=== PATIENT | female | born 1965 | race Caucasian/White ===

== ENCOUNTER 2017-04-06 20:18 | Emergency (ER) | payer BC ==
[2017-04-06 20:25] VITALS: BP 158/74; PULSE 78; TEMP 98.2; BMI 34.5
--- NOTE | 2017-04-06 20:28 | PDOC ---
History of Present Illness - History of Present Illness Initial Comments: Patient is a 51 year old female who is presenting to the ED with left flank pain since yesterday. The patient states that she developed her pain yesterday while driving home from work and since then it has persisted. Her pain radiates to the front of her LUQ and she notes that it disrupted her sleep last night. The patient also endorses frequent belching and an episode of nausea and vomiting before coming to the ED. Denies hematuria, dysuria, heavy lifting, recent trauma, back injury, or any history of kidney stones. Denies family hx of nephrolithiasis. PAST MEDICAL HISTORY: bronchial asthma PAST SURGICAL HISTORY: cholecystectomy FAMILY HISTORY: no pertinent history SOCIAL HISTORY: Pt lives with family and is employed. MEDICATIONS: reviewed ALLERGIES: As per nursing notes General: No fevers or chills, no weakness, no weight loss HEENT: No change in vision. No sore throat,. No ear pain CardioVascular: No chest pain or shortness of breath Respiratory:No cough, or wheezing. Gastrointestinal: Nausea, vomiting, frequent belching. No diarrhea or constipation, No rectal bleeding Genitourinary: No dysuria, hematuria, or frequency Musculoskeletal: Left flank pain. No joint or muscle swelling Neurologic: No headache, vertigo, dizziness or loss of consciousness Psychiatric: nor depression Skin: No rashes or easy bruising Endocrine: no increased thirst or abnormal weight change Allergic: no skin or latex allergy All other systems reviewed and normal General: Well-nourished well-developed individual, no acute distress HEENT: Throat: Normal, tonsils normal, no erythema or exudate Neck: Supple, no meningeal signs, no lymphadenopathy Eyes::Pupils equal reactive and round, extraocular motion intact Chest: Nontender to palpation Cardiac: S1-S2 normal, regular rate and rhythm, no murmurs rubs or gallops Respiratory: Lungs clear to auscultation bilateral Abdomen: Soft, nondistended, normal bowel sounds, mild tenderness to LUQ Musculoskeletal: Tenderness on palpation to left CVA and left flank. Extremities: Warm, dry, no cyanosis, clubbing, or edema Skin: No rashes Neuro: Alert and oriented x3, nonfocal exam, grossly intact, normal gait Psych: Normal mood and affect <Dulce Aleman - Last Filed: 04/06/17 21:48> - General History Source: Patient Exam Limitations: No Limitations - History of Present Illness Initial Comments: 04/06/17 22:54 A portion of this note was documented by scribe services under my direction. I have reviewed the details of the note, within reason, and agree with the documentation. The case summary and management plan written by me. Assessment and plan: This is a 51-year-old female who comes in complaining of left upper flank pain. Patient was given Toradol and morphine with improvement of her symptoms and resolution of the pain. Patient had a workup that did show a mildly elevated white count at 12.7 but no left shift Patient is afebrile and able to tolerate by mouth's here in the emergency room Patient CAT scan showed no evidence of kidney stones There was a few diverticula but no acute diverticulitis There was a small cyst on the left ovary of 2.5 cm Otherwise CAT scan was unremarkable. Patient given copy of her sac and report as well as her labs and told she should follow-up with her primary care doctor on Monday of next week if not improved. Patient discharged home. <Cathryn Cuenca I - Last Filed: 04/06/17 22:57> - General Chief Complaint: Pain Stated Complaint: LEFT SIDED BACK PAIN Time Seen by Provider: 04/06/17 20:23 Past History <Dulce Aleman - Last Filed: 04/06/17 21:48> - Past Medical History Asthma: Yes (BRONCHIAL ASTHMA) - Surgical History Cholecystectomy: Yes - Psycho/Social/Smoking Cessation Hx Anxiety: No Suicidal Ideation: No Smoking History: Current some day smoker Have you smoked in the past 12 months: Yes Number of Cigarettes Smoked Daily: 1 Information on smoking cessation initiated: Yes 'Breaking Loose' booklet given: 04/06/17 Hx Alcohol Use: (occasional) Drug/Substance Use Hx: No Substance Use Type: None <Cathryn Cuenca I - Last Filed: 04/06/17 22:57> - Past Medical History Allergies/Adverse Reactions: Allergies Allergy/AdvReac Type Severity Reaction Status Date / Time No Known Allergies Allergy Verified 04/06/17 20:20 Home Medications: Ambulatory Orders No Known Home Medication 04/06/17 *Physical Exam - Vital Signs Last Vital Signs Temp Pulse Resp BP Pulse Ox 98.2 F 78 18 158/74 100 04/06/17 20:18 04/06/17 20:18 04/06/17 20:18 04/06/17 20:18 04/06/17 20:18 <Dulce Aleman - Last Filed: 04/06/17 21:48> - Vital Signs Last Vital Signs Temp Pulse Resp BP Pulse Ox 98.2 F 78 18 158/74 100 04/06/17 20:18 04/06/17 20:18 04/06/17 20:18 04/06/17 20:18 04/06/17 20:18 <Cathryn Cuenca I - Last Filed: 04/06/17 22:57> Heart Score/ECG Review #1 04/06/17 21:48 Normal sinus rhythm at 65 bpm Normal ECG <Dulce Aleman - Last Filed: 04/06/17 21:48> ED Treatment Course - LABORATORY CBC & Chemistry Diagram: 04/06/17 21:00 04/06/17 21:00 <Dulce Aleman - Last Filed: 04/06/17 21:48> - LABORATORY CBC & Chemistry Diagram: 04/06/17 21:00 04/06/17 21:00 <Cathryn Cuenca I - Last Filed: 04/06/17 22:57> *DC/Admit/Observation/Transfer - Attestations Scribe Attestion: 04/06/17 20:40 Documentation prepared by Dulce Aleman, acting as medical technical writer for Cathryn Cuenca MD. <Dulce Aleman - Last Filed: 04/06/17 21:48> - Discharge Dispostion Admit: No <Cathryn Cuenca I - Last Filed: 04/06/17 22:57> Diagnosis at time of Disposition: Acute left flank pain - Discharge Dispostion Disposition: HOME Condition at time of disposition: Stable - Referrals Referrals: Nicky Fernandez MD [Primary Care Provider] - - Patient Instructions Additional Instructions: For the pain take ibuprofen or Naprosyn. Follow-up with your primary care DrRamesh on Monday if he still experiencing any pain. Return to the emergency department immediately with ANY new, persistent or worsening symptoms. Continue any medications as previously prescribed by your physician. You should follow up with your primary doctor as soon as possible regarding today's emergency department visit. . Please make sure your doctor reviews the results of your emergency evaluation. Thank you for coming to the Emergency Department today for your care. It was a pleasure to see you today. Please note that your evaluation is INCOMPLETE until you follow-up with your doctor.
[2017-04-06] MEDS ORDERED: KETOROLAC TROMETHAMINE 30 MG/1 ML VIAL IVPUSH ONE (20:33)
[2017-04-06] MEDS ORDERED: morphine CARPU-JECT 2 MG/1 ML DISP.SYRIN IVPUSH ONE (20:33)
[2017-04-06] MEDS ORDERED: ONDANSETRON 4 MG/2 ML VIAL IVPB ONE (20:33)
[2017-04-06] MEDS ORDERED: SODIUM CHLORIDE 1,000 ML IV ONE (20:33)
[2017-04-06] MEDS ORDERED: morphine CARPU-JECT 2 MG/1 ML DISP.SYRIN ONE (20:44)
[2017-04-06] MEDS ORDERED: KETOROLAC TROMETHAMINE 30 MG/1 ML VIAL ONE (20:44)
[2017-04-06] MEDS ORDERED: ONDANSETRON 4 MG/2 ML VIAL ONE (20:44)
[2017-04-06 21:16] LABS: PH,URINE 5.5 (4.5-8); URINE APPEARANCE Clear; URINE BILIRUBIN Negative (NEGATIVE); URINE BLOOD Negative (NEGATIVE); URINE COLOR YELLOW; URINE GLUCOSE (UA) Negative (NEGATIVE); URINE KETONE Negative (NEGATIVE); URINE LEUK ESTERASE Negative (NEGATIVE); URINE NITRITE Negative (NEGATIVE); URINE PROTEIN Negative (NEGATIVE); URINE UROBILINOGEN 0.2 E.U/dl (0.2-1.0)
[2017-04-06 21:21] LABS: BASOPHIL 1.4 % (0-2.0); EOSINOPHIL 1.4 % (0-4.5); MCH 23.7 pg (25.7-33.7); MCHC 32.6 g/dl (32.0-36.0); MEAN CELL VOLUME 72.6 fl (80-96); MEAN PLT VOLUME 8.1 fl (7.5-11.1); NEUTROPHILS 71.9 % (42.8-82.8); PLATELET COUNT 317 K/MM3 (134-434); RDW 17.2 % (11.6-15.6); WHITE BLOOD COUNT 12.4 K/mm3 (4.0-10.8)
[2017-04-06 21:44] LABS: ALBUMIN 3.7 g/dl (3.5-5.0); ALK PHOS 50 U/L (32-92); ANION GAP 7 (8-16); CALCIUM 9.2 mg/dl (8.4-10.2); CO2 27 mmol/L (22-28); CREATININE 0.6 mg/dl (0.6-1.3); GLUCOSE,RANDOM 105 mg/dl (74-106); SGOT/AST 14 U/L (10-42); SGPT/ALT 12 U/L (10-40); TOT PROT 6.8 g/dl (6.4-8.3)
[2017-04-06 22:09] LABS: BILIRUBIN,TOTAL < 0.3 mg/dl (0.2-1.0)
[2017-04-06 22:47] LABS: ANISOCYTOSIS 1+; HYPOCHROMIA 1+; MICROCYTOSIS 1+; OVALOCYTES 1+; TEAR DROP CELLS 1+
--- NOTE | 2017-04-07 16:54 | EKG ---
Test Reason : Blood Pressure : / mmHG Vent. Rate : 065 BPM Atrial Rate : 065 BPM P-R Int : 160 ms QRS Dur : 092 ms QT Int : 422 ms P-R-T Axes : 024 065 041 degrees QTc Int : 438 ms NORMAL SINUS RHYTHM NORMAL ECG WHEN COMPARED WITH ECG OF 29-NOV-2015 08:58, NO SIGNIFICANT CHANGE WAS FOUND Confirmed by NICOLAS IRVING MD ([id number]) on 04/07/2017 4:54:27 PM Referred By: DR ARREGUIN Confirmed By:NICOLAS IRVING MD
== END 2017-04-06 23:14 | disposition home or self-care (01) ==
LOC: FER 20:18
PROC: 3E033NZ Introduction of Analgesics, Hypnotics, Sedatives into Peripheral Vein, Percutaneous Approach (ICD-10-PCS; principal; 2017-04-06)
PROC: 3E0333Z Introduction of Anti-inflammatory into Peripheral Vein, Percutaneous Approach (ICD-10-PCS; 2017-04-06)
PROC: 3E033GC Introduction of Other Therapeutic Substance into Peripheral Vein, Percutaneous Approach (ICD-10-PCS; 2017-04-06)
PROC: 3E0337Z Introduction of Electrolytic and Water Balance Substance into Peripheral Vein, Percutaneous Approach (ICD-10-PCS; 2017-04-06)
DX: R10.32 Left lower quadrant pain (principal); F17.210 Nicotine dependence, cigarettes, uncomplicated; J45.998 Other asthma
CPT/HCPCS: 36415; 74176-TC; 80053; 81003; 83690; 84703; 85025; 93005; 99284-25

== ENCOUNTER 2017-10-10 05:50 | Day surgery (SDC) | payer BC ==
--- NOTE | 2017-10-09 09:24 | HP ---
[facility] - Chief Complaint Chief Complaint: left knee pain - Past Medical History Allergies/Adverse Reactions: Allergies Allergy/AdvReac Type Severity Reaction Status Date / Time No Known Allergies Allergy Verified 04/06/17 20:20 ...LMP: 03/01/15 - Current Medications Current Medications: Home Medications Medication Instructions Recorded NK [No Known Home Medication] 10/03/17 [facility] Physical Exam - Physical Examination General Appearance: Well Nourished, Well Developed, Alert & Oriented x3 ENT: Clear Lung: Normal air movement Heart: Regular rate & rhythm Extremities: Other (left knee- + swelling, + ttp medially, decr rom, nvi xrays show grade 4 medial djd) Neurological: Intact, Alert, Oriented [facility] Impression/Plan - Impression/Plan Impression: left knee medial djd Operative Procedure: left medial francois ukr Date to be Performed: 10/10/17
[2017-10-10] MEDS ORDERED: TRANEXAMIC ACID 1000 MG/10 ML VIAL IVPUSH ONE (06:40)
[2017-10-10] MEDS ORDERED: CELECOXIB 200 MG CAPSULE PO ONE (06:40)
[2017-10-10] MEDS ORDERED: CEFAZOLIN 2 GM in DEXTROSE 5%-WATER - 50 ML IVPB ONE (06:40)
[2017-10-10] MEDS ORDERED: GABAPENTIN 300 MG CAPSULE (FP) PO ONE (06:40)
[2017-10-10] MEDS ORDERED: oxyCODONE HCL 10 MG SUSTAINED ACTING TABLET PO ONE (06:40)
[2017-10-10] MEDS ORDERED: ROPIVICAINE 0.2%/MORPH PF/KETOROLAC - 51ML DISP.SYRINGE IA ONE ×2 (06:40→09:24)
[2017-10-10 06:58] VITALS: BMI 34.5
[2017-10-10] MEDS ORDERED: DEXAMETHASONE SOD PHOSPHATE/PF 10 MG/ML SDV ONE (07:01)
[2017-10-10] MEDS ORDERED: ROPIVACAINE HCL 0.5% 30ML VIAL ONE (07:01)
[2017-10-10] MEDS ORDERED: SODIUM CHLORIDE 0.9% P/F 10 ML VIAL IJ ONE (07:01)
[2017-10-10] MEDS ORDERED: MIDAZOLAM HCL 2 MG/2 ML SINGLE DOSE VIAL ONE ×2 (07:01→08:08)
[2017-10-10] MEDS ORDERED: THROMBIN (BOVINE) 5,000 UNIT VIAL TP ONE ×2 (07:16→09:01)
[2017-10-10] MEDS ORDERED: GELATIN, ABSORBABLE 100 EACH SPONGE TP ONE ×2 (07:16→09:01)
[2017-10-10] MEDS ORDERED: ceFAZolin SODIUM 1 GM VIAL ONE ×2 (07:31→07:42)
[2017-10-10] MEDS ORDERED: PROPOFOL 20 ML ONE (07:38)
[2017-10-10] MEDS ORDERED: SUCCINYLCHOLINE CHLORIDE 200 MG/10 ML VIAL ONE (07:38)
[2017-10-10] MEDS ORDERED: oxyCODONE HCL 5 MG TABLET PO PRN (09:14)
[2017-10-10] MEDS ORDERED: ONDANSETRON 4 MG/2 ML VIAL IVPUSH PRN ×2 (09:14→09:50)
[2017-10-10] MEDS ORDERED: LACTATED RINGERS SOLUTION 1,000 ML IV SCH ×2 (09:15→10:00)
[2017-10-10] MEDS ORDERED: MAG HYDROX/AL HYDROX/SIMETH 30 ML UNIT-DOSE CUP PO PRN (09:50)
--- NOTE | 2017-10-10 09:52 | OP ---
Operative Note - Note: Operative Date: 10/10/17 ([place]) Pre-Operative Diagnosis: left knee medial djd Operation: left medial francois ukr Post-Operative Diagnosis: Same as Pre-op Surgeon: Papito Cardona Metal Sprayer: Jefry Sewell) Anesthesiologist/[employer] PILOT: Severino Corado Anesthesia: Spinal, Local Specimens Removed: bone fragments Estimated Blood Loss (mls): 50 Operative Report Dictated: Yes
--- NOTE | 2017-10-10 10:58 | SPEC ---
DATE OF OPERATION: 10/10/2017 PREOPERATIVE DIAGNOSIS: Degenerative joint disease, left knee. POSTOPERATIVE DIAGNOSIS: Degenerative joint disease, left knee. PROCEDURE: Left medial unicompartmental knee replacement with robotic-assisted navigation (MAKOplasty). SURGICAL ATTENDING: Eduard Cardona MD QA CONSULTANT: EVONNE Bowman and Jefry Sewell MD ANESTHESIA: Spinal and regional. CLOSURE: Medial RITESH components with a 4 femur, 4 tibia, and an 8 polyethylene; No. 1 Vicryl, fascia; 0 and 2-0, subcutaneous; 3-0 Monocryl subcuticular with skin glue for skin; 4-0 undyed Vicryl for pin sites. ESTIMATED BLOOD LOSS: Negligible. COMPLICATIONS: None. CONDITION: To recovery in stable condition. DESCRIPTION OF OPERATIVE PROCEDURE: Patient was taken to the operating room on October 10, 2017. Spinal and regional anesthesia was administered by the anesthesiologist. IV Kefzol and TXA were administered prophylactically prior to the case. A well-padded pneumatic tourniquet was placed on the left proximal thigh. The left lower extremity was prepped and draped in the usual sterile fashion. A 6- to 8-cm longitudinal incision over the medial side of the patella from mid patella to the tibial tubercle was incised and was deepened using Bovie cautery. An arthrotomy was then made just medial to the patellar tendon and the patella. Subperiosteal dissection was done on the anteromedial proximal tibia all the way back to the MCL. Partial fat pad excision was performed, exposing the medial compartment. Checkpoint was malleable at both the femur and the tibia. Using 2 stab incisions in the femur 1 handbreadth above the patella on the femur and 2 stab incisions 1 handbreadth below the tibial tubercle on the tibia, 2 threaded pins were drilled in parallel fashion from anterior to posterior, going through the proximal cortex and engaging the 2nd but not through the 2nd cortex. To these threaded pins were fastened navigation rays, 1 on the femur and 1 on the tibia. The knee was then registered with the navigation device with the center of the rotation of the hip, medial and lateral malleoli, and multiple points both on the femur and on the tibia. Excellent registration of less than 0.5 mm was obtained on both to ensure adequate registration. The navigation device ensured us to "pop the bubbles" both on the femur and the tibia and that was performed and passed registration. The knee was then thoroughly inspected to remove all osteophytes both on the femur and the tibia. Also, osteophytes on the trochlea and on the surface of the patella were removed as well. The knee was then stressed with valgus stress at 0, 30, 60, 90, and 120 degrees of flexion. This propagated a looseness/tightness graft. The virtual positions of the components were then optimized to ensure an excellent graft. The tracking also was optimized by manipulating the virtual position to ensure that the femoral component articulated with the central portion of the tibial component. The robot was then brought into the field and was registered. The robot was used to bur the bone on both the femur and the tibia as to the specifications of the components. The trial components were then applied on both the femur and the tibia with an appropriate polyethylene insert. The knee was taken through a range of motion and found to have full extension, full flexion, with excellent stability. Stressing the graft revealed an excellent looseness/tightness graft with the trial components in place. The trial components were removed. The knee was thoroughly irrigated with a copious amount of antibiotic irrigation. The real components were then cemented in using modern generation cement techniques with antibiotic cement and pressurization. After the cement was hardened, the knee was thoroughly inspected to remove out all excess cement. The real polyethylene insert was then clipped into place. Range of motion and stability were again assessed to be as they were with the trials. At this time, the pins and the checkpoints were removed. The knee was again thoroughly irrigated. The arthrotomy was closed with No. 1 Vicryl, 0 and 2-0 subcutaneous, and 3-0 Monocryl subcuticular with skin glue for the skin, 4-0 undyed Vicryl for the pin sites. Sterile pressure dressing was placed over the knee. Patient awakened from anesthesia and transferred to recovery in stable condition. No complications. Estimated blood loss negligible. X-rays postoperatively revealed excellent position of the components. Jefry Sewell MD dictating for MD EDUARD Forbes M.D. [id number]
[2017-10-10] MEDS: SENNOSIDES/DOCUSATE COMBO (SENNA PLUS) TABLET (UD) PO SCH ×2 (13:30→21:36)
[2017-10-10] MEDS: MULTIVITAMINS (DAILY MVI) TABLET (FP) PO SCH (13:32)
[2017-10-10] MEDS: PANTOPRAZOLE 40 MG TABLET (FP) PO SCH (13:32)
[2017-10-10] MEDS: ACETAMINOPHEN 325 MG TABLET (FP) PO SCH ×3 (13:39→23:45)
[2017-10-10] MEDS: CEFAZOLIN 2 GM/D5W 2 GM/50 ML ML IVPB SCH ×2 (15:53→23:44)
[2017-10-10] MEDS: GABAPENTIN 300 MG CAPSULE (FP) PO SCH (21:36)
[2017-10-10] MEDS: oxyCODONE HCL 5 MG TABLET PO PRN (21:36)
[2017-10-10] MEDS: oxyCODONE HCL 10 MG SUSTAINED ACTING TABLET PO SCH (21:36)
[2017-10-11] MEDS: oxyCODONE HCL 5 MG TABLET PO PRN ×2 (06:21→12:38)
[2017-10-11] MEDS: ACETAMINOPHEN 325 MG TABLET (FP) PO SCH ×2 (06:21→12:39)
[2017-10-11] MEDS ORDERED: ASPIRIN 325 MG TABLET PO SCH (08:00)
[2017-10-11 09:10] VITALS: BP 151/60; PULSE 56; TEMP 97.4
--- NOTE | 2017-10-11 09:28 | PN ---
Progress Note (short form) - Note Progress Note: Ortho Pt seen and examined s/p left medial francois ukr pod #1 Selected Entries 10/11/17 09:04 Temperature 97.4 F L Pulse Rate 56 L Respiratory 16 Rate Blood Pressure 151/60 dressing c/d/i, calf soft, nt rom 0-120, nvi a/p PT dvt ppx pain control d/c home today f/u in 1 week
--- NOTE | 2017-10-11 09:29 | DS ---
Physical Examination Vital Signs: Vital Signs Temperature 97.4 F L 10/11/17 09:04 Pulse Rate 56 L 10/11/17 09:04 Respiratory Rate 16 10/11/17 09:04 Blood Pressure 151/60 10/11/17 09:04 O2 Sat by Pulse Oximetry (%) 97 10/10/17 22:53 Discharge Summary Reason For Visit: OSTEOARTHRITIS Procedures: Principal: s/p left medial francois ukr Hospital Course: admitted for elective left medial francois, uneventful post-op, stable for d/c Condition: Good - Instructions Diet, Activity, Other Instructions: Post-op Instructions-Partial Knee Replacement Call the office for a follow-up appointment in 1 week - [phone] Aspirin 325mg daily for 6 weeks. Pain medication was sent into your pharmacy. Apply Graduated Compression Stockings (TEDs) to both lower extremities- remove daily for hygiene ONLY Apply Sequential Compression Device (SCDs) to both Lower extremities remove for PT and hygiene ONLY Apply cold packs to affected area for 15 minutes every 2 hours. Physical Therapist will come to your home for the first 5 days. You will be set up with outpatient PT at your first post-operative visit. Patient may ambulate as tolerated-encourage self care (at least every 2-3 hours while awake) with walker or cane Maintain Aquacel (waterproof) dressing to operative wound (will be removed by surgeon at first office visit) Shower with Aquacel dressing in place-if Aquacel integrity compromised, remove and apply dry sterile dressing and notify Orthopedist. DO NOT SHOWER unless Orthopedists approves without Aquacel dressing CONTACT THE OFFICE FOR ANY CHANGE IN YOUR CONDITION (for example-fever greater than 102 degrees, excessive bleeding from operative site, purulent drainage, severe swelling or pain) GO TO THE EMERGENCY ROOM IF THERE IS A MEDICAL EMERGENCY Knee Precautions: * Keep a rolled towel under affected heel while in bed or chair (to keep knee in extension) * Keep affected leg elevated except during mealtimes * DO NOT PLACE PILLOW UNDER AFFECTED KNEE * If you have any questions, please do not hesitate to call the office - . Referrals: Jefry Sewell MD [Staff Physician] - Disposition: VNS/HOME HEALTH CARE - Home Medications Comprehensive Discharge Medication List: Ambulatory Orders Oxycodone HCl/Acetaminophen [Percocet 5-325 mg Tablet] 1 - 2 tab PO Q6H #50 tab MDD 8 10/10/17
[2017-10-11] MEDS: SENNOSIDES/DOCUSATE COMBO (SENNA PLUS) TABLET (UD) PO SCH (10:23)
[2017-10-11] MEDS: oxyCODONE HCL 10 MG SUSTAINED ACTING TABLET PO SCH (10:24)
[2017-10-11] MEDS: GABAPENTIN 300 MG CAPSULE (FP) PO SCH (10:24)
[2017-10-11] MEDS: MULTIVITAMINS (DAILY MVI) TABLET (FP) PO SCH (10:25)
[2017-10-11] MEDS: PANTOPRAZOLE 40 MG TABLET (FP) PO SCH (10:25)
--- NOTE | 2017-10-11 11:02 | PN ---
Progress Note (short form) - Note Progress Note: Post op day#1.S/p Left knee Macoplasty under spinal anesthesia with L adductor canal block uneventful.Patient stable and c/o pain score of 2-3/10.Patient is on medication for pain.No any anesthesia related problem.Patient dc from the anesthesia care.
== END 2017-10-11 13:05 | disposition home or self-care (01) ==
LOC: FASU 05:50 → FM/S 06:40 → FASU 10-11 13:05
PROVIDERS: ATTEND Orthopaedic Surgery
PROC: 8E0YXBZ Computer Assisted Procedure of Lower Extremity (ICD-10-PCS; 2017-10-10)
PROC: 0SRC0L9 Replacement of Right Knee Joint with Medial Unicondylar Synthetic Substitute, Cemented, Open Approach (ICD-10-PCS; principal; 2017-10-10 08:00)
DX: M17.12 Unilateral primary osteoarthritis, left knee (principal)
CPT/HCPCS: 20985; 27437; 27446; S2900; 73560-TC-LT; 84703; 94010; 97116-GP; 97162-GP

== ENCOUNTER 2017-10-16 10:47 | Emergency (ER) | payer BC ==
[2017-10-16 11:00] VITALS: BP 110/71; TEMP 98.1; BMI 34.7
[2017-10-16 11:05] VITALS: PULSE 98
--- NOTE | 2017-10-16 11:22 | PDOC ---
History of Present Illness - General Chief Complaint: Wound Stated Complaint: left knee drainage Time Seen by Provider: 10/16/17 10:52 History Source: Patient Exam Limitations: No Limitations - History of Present Illness Initial Comments: 10/16/17 11:15 52y F no signficiant pmhs presents with complaint of discharge from L knee. The patient had knee surgery [address] Sewell, and has been donig her rehab and doing well - mild pain since surgery but improves w/ percocet - last night, she woke up around 4am with discharge on her knee. pt denies any fever/chills, no increase in leg pain, no redness/streaking. pts next follow up appointment is or mon. pt denies any other symptoms including sob, cp, palpitations, f/c. Past History - Past Medical History Allergies/Adverse Reactions: Allergies Allergy/AdvReac Type Severity Reaction Status Date / Time No Known Allergies Allergy Verified 10/16/17 10:48 Home Medications: Ambulatory Orders Oxycodone HCl/Acetaminophen [Percocet 5-325 mg Tablet] 1 - 2 tab PO Q6H #50 tab MDD 8 10/10/17 Anemia: No Asthma: Yes (BRONCHIAL ASTHMA) Cancer: No Cardiac Disorders: No CVA: No COPD: No CHF: No DVT: No Dementia: No Diabetes: No GI Disorders: No Disorders: No HTN: No Hypercholesterolemia: No Liver Disease: No Seizures: No Thyroid Disease: No - Surgical History Abdominal Surgery: No Appendectomy: No Cardiac Surgery: No Cholecystectomy: Yes Lung Surgery: No Neurologic Surgery: No Orthopedic Surgery: No - Suicide/Smoking/Psychosocial Hx Smoking History: Current some day smoker Have you smoked in the past 12 months: Yes Number of Cigarettes Smoked Daily: 1 Information on smoking cessation initiated: Yes 'Breaking Loose' booklet given: 10/16/17 Hx Alcohol Use: No Drug/Substance Use Hx: No Substance Use Type: None Hx Substance Use Treatment: No Review of Systems - Review of Systems Able to Perform ROS?: Yes Comments:: 10/16/17 11:17 Constitutional - no reported Fever, Chills, Respiratory: no reported cough, sob, hemoptysis Cardiac: ++leg swelling no reported chest pain, palpitations, Abd/GI: no reported abd pain, nausea, vomiting, Musculskelatal - +wound discharge no reported back pain, joint swelling skin - +wound w/ serosangounous discharge no reported bruising, erythema, rash neurological: no reported headache, numbness, focal weakness, tingling, ataxia, hematologic: no reported anemia, easy bruising, easy bleeding *Physical Exam - Vital Signs Last Vital Signs Temp Pulse Resp BP Pulse Ox 98.1 F 98 H 17 110/71 98 10/16/17 10:48 10/16/17 10:48 10/16/17 10:48 10/16/17 10:48 10/16/17 10:48 - Physical Exam Comments: 10/16/17 11:18 GENERAL: The patient is awake, alert, and fully oriented, Nontoxic - in no acute distress. EXTREMITIES: mild edema of LLE, 3 incisions on anterior L leg, over knee there is a dressing with bloody dischage, was removed, no signficant discharge, but small amounts of serousangouns discharge, not foul smelling, no signs of induration, erythema, fluctuance, ttp appreciated. mild edema, No calf tenderness, neg homans sign. Medical Decision Making - Medical Decision Making 10/16/17 11:22 no infection appreciated. case d/w dr. sewell requests to see the pt in his office will redress the wound return precautions were discussed I discussed the physical exam findings, ancillary test results and final diagnoses with the patient. I answered all of the patient's questions. The patient was satisfied with the care received and felt comfortable with the discharge plan and treatment plan. The patient will call their primary care physician within 24 hours to arrange follow-up and will return to the Emergency Department with any new, persistent or worsening symptoms. *DC/Admit/Observation/Transfer Diagnosis at time of Disposition: Wound drainage - Discharge Dispostion Disposition: HOME Condition at time of disposition: Stable Admit: No - Referrals Referrals: Jefry Sewell MD [Staff Physician] - - Patient Instructions Printed Discharge Instructions: How to Care for a Surgical Wound-Stitches Additional Instructions: Please go to Dr. Zuniga office now, he is expecting you. Print Language: SWEDISH - Post Discharge Activity
== END 2017-10-16 11:31 | disposition home or self-care (01) ==
LOC: FER 10:47
DX: T81.89XA Other complications of procedures, not elsewhere classified, initial encounter (principal); J45.909 Unspecified asthma, uncomplicated; F17.210 Nicotine dependence, cigarettes, uncomplicated
CPT/HCPCS: 99281-25

== ENCOUNTER 2018-02-01 | Emergency (ER) | payer BC ==
--- NOTE | 2018-02-01 00:09 | PDOC ---
History of Present Illness - General Chief Complaint: Pain, Acute Stated Complaint: LUQ PAIN/VOMITING Time Seen by Provider: 02/01/18 00:03 - History of Present Illness Initial Comments: This 52-year-old woman with a history of asthma,s/p cholecystectomy presents with 1 day history of left upper quadrant abdominal discomfort, followed by nausea and vomiting since 2 PM today. Prior to this, patient had intermittent loose stools for 2 days (no blood/mucus in stools). No history of fever or chills. No known history of sick contacts. No recent travel. Patient states that sensation of fullness or "bloating" in the left upper quadrant began last evening. This afternoon, nausea began and she had a few episodes of bilious vomiting. She then presented to urgent care; after returning home she had further episodes of vomiting and persistent left upper quadrant pain. She has had passage of small amount of soft stool today; no further loose stools today. Patient is currently passing small amounts of gas per rectum. Patient smokes 1-2 cigarettes daily; no alcohol/recreational drug use Past History - Past Medical History Allergies/Adverse Reactions: Allergies Allergy/AdvReac Type Severity Reaction Status Date / Time No Known Allergies Allergy Verified 02/01/18 00:02 Home Medications: Ambulatory Orders Hyoscyamine Odt [Levsin Odt -] 0.125 mg PO QID PRN #10 tab.rapdis 02/01/18 Ondansetron [Zofran Odt -] 4 mg SL BID PRN #12 od.tablet 02/01/18 Anemia: No Asthma: Yes (BRONCHIAL ASTHMA) Cancer: No Cardiac Disorders: No CVA: No COPD: No CHF: No DVT: No Dementia: No Diabetes: No GI Disorders: No Disorders: No HTN: No Hypercholesterolemia: No Liver Disease: No Seizures: No Thyroid Disease: No - Surgical History Abdominal Surgery: No Appendectomy: No Cardiac Surgery: No Cholecystectomy: Yes Lung Surgery: No Neurologic Surgery: No Orthopedic Surgery: No - Suicide/Smoking/Psychosocial Hx Smoking History: Current some day smoker Have you smoked in the past 12 months: Yes Number of Cigarettes Smoked Daily: 1 'Breaking Loose' booklet given: 10/16/17 Hx Alcohol Use: No Drug/Substance Use Hx: No Substance Use Type: None Hx Substance Use Treatment: No Review of Systems - Review of Systems Able to Perform ROS?: Yes Comments:: 12 point review of systems is negative except for what is noted in the history of present illness *Physical Exam - Physical Exam Comments: GENERAL: Adult female, alert and oriented 3, in moderate distress secondary to nausea/abdominal pain HEAD: Normal with no signs of trauma. EYES: PERRLA, EOMI, sclera anicteric, conjunctiva clear. ENT: Ears normal, nares patent, oropharynx clear without exudates. Dry mucous membranes. NECK: Normal range of motion, supple without lymphadenopathy, JVD, or masses. LUNGS: Breath sounds equal, clear to auscultation bilaterally. No wheezes, and no crackles. HEART:Regular rate and rhythm, normal S1 and S2 without murmur, rub or gallop. ABDOMEN: Hypoactive bowel sounds. Mild left upper quadrant tenderness without rebound/guarding; no masses palpated; no organomegaly EXTREMITIES: Normal range of motion, no edema. No clubbing or cyanosis. No erythema, or tenderness. NEUROLOGICAL: Cranial nerves II through XII grossly intact. Normal speech. No focal neurological deficits. MUSCULOSKELETAL: Back non-tender to palpation, mild left CVA tenderness SKIN: Warm, Dry, normal turgor, no rashes or lesions noted. ED Treatment Course - LABORATORY CBC & Chemistry Diagram: 02/01/18 00:20 02/01/18 00:11 Progress Note - Progress Note Progress Note: Laboratory evaluation of CBC/chemistry profile/lipase was essentially normal. Mildly decreased MCV of 77 is comparable to previous values on laboratory evaluation here. White blood cell count and platelet count are normal. Other than evidence of mild to moderate prerenal azotemia (BUN 13/creatinine 0.6 ; specific gravity of urine 0.025) , lab values are essentially normal. Because of her mild left upper quadrant tenderness/left upper quadrant and epigastric discomfort, abdominal/pelvic CT was performed to evaluate for acute intra-abdominal processes such as acute diverticulitis/small bowel obstruction/ pancreatitis. CT was interpreted by Imaging construction recruiter: No evidence of acute intra-abdominal/ intrapelvic processes The patient was given IV hydration (2 L normal saline total) as well as antiemetic medications IV (4 mg Zofran IV followed by an additional 4 mg dose; she eventually required Reglan 10 mg IV). Levsin ODT 0.125 mg was administered for her crampy abdominal discomfort. Patient reported marked relief in nausea and abdominal discomfort. She still had some burping but tolerated small amounts of water by mouth without nausea/vomiting. Clinical presentation most consistent with acute gastroenteritis Patient will be discharged with prescriptions for Zofran ODT 4 mg to be used as needed for nausea; she will also have a small prescription for Levsin 0.125 mg as needed for abdominal discomfort. She has been instructed to maintain a clear liquid diet and advance diet cautiously. She should return to the emergency room if she experiences increased abdominal pain/vomiting/fever. Patient has been given documentation not to work later on today, 02/01. Patient and her are scheduled to leave on a vacation on Monday, 02/02. Patient has been advised to consider delaying departure for the trip for an additional day or 2 of recuperation. *DC/Admit/Observation/Transfer Diagnosis at time of Disposition: Gastroenteritis - Discharge Dispostion Disposition: HOME Condition at time of disposition: Stable - Prescriptions Prescriptions: Hyoscyamine Odt [Levsin Odt -] 0.125 mg PO QID PRN #10 tab.rapdis PRN Reason: Pain Ondansetron [Zofran Odt -] 4 mg SL BID PRN #12 od.tablet PRN Reason: Nausea - Referrals Referrals: Nicky Fernandez MD [Primary Care Provider] - - Patient Instructions Printed Discharge Instructions: DI for Viral Gastroenteritis -- Adult Additional Instructions: Rest; clear liquid diet No work today Advance diet cautiously Zofran ODT 4 mg as needed for nausea Levsin ODT 0.125 mg up to 4 times a day as needed for abdominal discomfort Return to ER immediately if you have persistent vomiting/increasing pain/fever Follow-up with your doctor when you return from vacation - Post Discharge Activity Forms/Work/School Notes: Back to Work
[2018-02-01] MEDS ORDERED: ONDANSETRON 4 MG/2 ML VIAL IVPUSH ONE ×2 (00:12→01:27)
[2018-02-01] MEDS ORDERED: SODIUM CHLORIDE 1,000 ML IV STA (00:12)
[2018-02-01] MEDS ORDERED: KETOROLAC TROMETHAMINE 30 MG/1 ML VIAL IVPUSH ONE (00:12)
[2018-02-01 00:17] VITALS: BP 148/72; PULSE 83; TEMP 97.9; BMI 34.7
[2018-02-01] MEDS ORDERED: ONDANSETRON 4 MG/2 ML VIAL ONE ×2 (00:18→01:25)
[2018-02-01] MEDS ORDERED: KETOROLAC TROMETHAMINE 30 MG/1 ML VIAL ONE ×2 (00:18→03:02)
[2018-02-01 00:48] LABS: BASO % 0.6 % (0-2.0); EOS % 0.4 % (0-4.5); HEMATOCRIT 34.4 % (32.4-45.2); HEMOGLOBIN 11.3 GM/dL (10.7-15.3); LYMPH % 12.3 % (8-40); MCH 25.4 pg (25.7-33.7); MCHC 32.8 g/dl (32.0-36.0); MEAN CELL VOLUME 77.2 fl (80-96); MEAN PLT VOLUME 8.1 fl (7.5-11.1); MONO % 4.9 % (3.8-10.2); NEUT % 81.8 % (42.8-82.8); PLATELET COUNT 376 K/MM3 (134-434); RBC 4.45 M/mm3 (3.60-5.2); RDW 14.5 % (11.6-15.6); WHITE BLOOD COUNT 9.6 K/mm3 (4.0-10.0)
[2018-02-01 00:49] LABS: URINE APPEARANCE CLEAR; URINE BILIRUBIN NEGATIVE (<2.0 mg/dL); URINE BLOOD NEGATIVE (NEGATIVE); URINE COLOR YELLOW; URINE GLUCOSE (UA) NEGATIVE (NEGATIVE); URINE KETONE TRACE (NEGATIVE); URINE LEUK ESTERASE NEGATIVE (NEGATIVE); URINE NITRITE NEGATIVE (NEGATIVE); URINE PROTEIN NEGATIVE (NEGATIVE); URINE UROBILINOGEN NEGATIVE mg/dL (0.2-1.0)
[2018-02-01 01:26] LABS: LIPASE 114 U/L (73-393)
[2018-02-01] MEDS ORDERED: HYOSCYAMINE SULFATE 0.125 MG *ODT PO ONE (01:29)
[2018-02-01 01:30] LABS: BLOOD UREA NITROGEN 12 mg/dl (7-18); CREATININE 0.6 mg/dl (0.6-1.3); GLUCOSE,RANDOM 116 mg/dl (74-106); POTASSIUM 3.7 mmol/L (3.5-5.1); SODIUM 141 mmol/L (136-145)
[2018-02-01] MEDS ORDERED: HYOSCYAMINE SULFATE 0.125 MG *ODT ONE ×2 (01:30→03:08)
[2018-02-01 01:31] LABS: ALBUMIN 3.7 g/dl (3.5-5.0); ANION GAP 14 (8-16); BILIRUBIN,TOTAL 0.5 mg/dl (0.2-1.0); CALCIUM 8.8 mg/dl (8.4-10.2); CHLORIDE 104 mmol/L (98-107); CO2 23 mmol/L (22-28); SGOT/AST 16 U/L (10-42); SGPT/ALT 16 U/L (10-40); TOT PROT 7.4 g/dl (6.4-8.3)
[2018-02-01 01:32] LABS: ALK PHOS 75 U/L (32-92)
[2018-02-01] MEDS ORDERED: METOCLOPRAMIDE HCL INJECTION 10 MG/2 ML VIAL IVPB ONE (02:04)
[2018-02-01] MEDS ORDERED: KETOROLAC TROMETHAMINE 15 MG/ML VIAL IVPUSH ONE (02:55)
[2018-02-01] MEDS ORDERED: ONDANSETRON *ODT* 4 MG TABLET ONE (03:09)
== END 2018-02-01 03:18 | disposition home or self-care (01) ==
LOC: FER
PROC: 3E033GC Introduction of Other Therapeutic Substance into Peripheral Vein, Percutaneous Approach (ICD-10-PCS; principal; 2018-02-01)
PROC: 3E0333Z Introduction of Anti-inflammatory into Peripheral Vein, Percutaneous Approach (ICD-10-PCS; 2018-02-01)
PROC: 3E0337Z Introduction of Electrolytic and Water Balance Substance into Peripheral Vein, Percutaneous Approach (ICD-10-PCS; 2018-02-01)
DX: K52.9 Noninfective gastroenteritis and colitis, unspecified (principal); J45.909 Unspecified asthma, uncomplicated; F17.210 Nicotine dependence, cigarettes, uncomplicated
CPT/HCPCS: 36415; 74177-TC; 80053; 81003; 83690; 85025; 99281-25; J7030

== ENCOUNTER 2018-09-24 19:24 | Emergency (ER) | payer BC ==
[2018-09-24 19:38] VITALS: BP 139/69; PULSE 96; TEMP 99; BMI 37.1
--- NOTE | 2018-09-24 19:43 | PDOC ---
History of Present Illness - History of Present Illness Initial Comments: 09/24/18 20:24 The patient is a 53 year old female, with no significant PMH who presents to the emergency department with shortness of breath, left shoulder pain, palpitations today. Patient states the shortness of breath is exacerbated with walking. is at bedside, and notes that the patient has been having difficulty falling asleep. The patient denies chest pain, headache and dizziness. Denies fever, chills, nausea, vomit, diarrhea and constipation. Denies dysuria, frequency, urgency and hematuria. Allergies: NKA Past surgical history: None reported. Social history: No reported alcool, de Adult ROS General: No fevers or chills, no weakness, no weight loss HEENT: No change in vision. No sore throat,. No ear pain CardioVascular: No chest pain. (+) Shortness of breath. (+)Palpitations. Respiratory:No cough, or wheezing. Gastrointestinal: no nausea, vomiting, diarrhea or constipation, No rectal bleeding Genitourinary: No dysuria, hematuria, or frequency Musculoskeletal: No muscle pain or swelling. (+) Left shoulder pain. Neurologic: No headache, vertigo, dizziness or loss of consciousness Psychiatric: nor depression Skin: No rashes or easy bruising Endocrine: no increased thirst or abnormal weight change Allergic: no skin or latex allergy All other systems reviewed and normal Adult Exam: General: Well-nourished well-developed individual, no acute distress (+) Obese. HEENT: Throat: Normal, tonsils normal, no erythema or exudate Neck: Supple, no meningeal signs, no lymphadenopathy Eyes::Pupils equal reactive and round, extraocular motion intact Chest: Nontender to palpation Cardiac: S1-S2 normal, regular rate and rhythm, no murmurs rubs or gallops Respiratory: Lungs clear to auscultation bilateral Abdomen: Soft, nondistended, normal bowel sounds, nontender to palpation diffusely Extremities: Warm, dry, no cyanosis, clubbing, or edema Skin: No rashes Neuro: Alert and oriented x3, nonfocal exam, grossly intact, normal gait Psych: Normal mood and affect <Rosa Ramesh - Last Filed: 09/24/18 21:02> - General History Source: Patient Exam Limitations: No Limitations - History of Present Illness Initial Comments: 09/24/18 20:03 A portion of this note was documented by scribe services under my direction. I have reviewed the details of the note, within reason, and agree with the documentation with the following case summary and management plan written by me. Patient treated in the ED. Nursing notes are reviewed and incorporated into the medical decision-making. Vital signs reviewed. Medical decision making: This is a 53 year old female who comes in complaining of multiple somatic complaints. Patient is complaining of chest discomfort, arm discomfort, palpitations, shortness of breath especially with exertion. Patient is also complaining of multiple myalgias and arthralgias. Patient's complaining of fatigue. Patient has not seen her primary care doctor. Patient said symptoms have been going on 1 week plus now. Patient denies history of hypertension, high cholesterol, diabetes or coronary artery disease. Patient denies history of smoking does have a history of obesity. Workup was initiated including CBC, comp, calcium, mag, phosphorus, BNP, d-dimer , urinalysis, chest x-ray, EKG, Lyme disease, CRP. EKG shows normal sinus rhythm at a rate of 86, normal intervals no acute ST-T wave changes, normal EKG 09/24/18 21:00 Reevaluation: Patient feels much better after the Toradol. Patient says she has no more palpitations or shortness of breath. Patient resting comfortably. D-dimer, BNP still pending. Chest x-ray shows no acute pathology 09/25/18 00:[address] angios of the chest that shows no pulmonary embolism pneumonia or pleural effusions no dissection or aneurysm. There is a left lower lobe nodule less than 4 mm probably inflammatory. In addition to that there is a 1.6 hypodense nodule in the lower pole of the right thyroid. Patient was given a copy of her CAT scan and the nodules were pointed out and she was instructed to take it to her primary care doctor follow up with her primary care doctor In addition to that patient's CRP was elevated at 2.1 so she likely has some sort of inflammatory process or rheumatoid type process. Patient discharged home will follow-up with her primary care doctor <Cathryn Cuenca I - Last Filed: 09/25/18 00:33> - General Chief Complaint: Respiratory Stated Complaint: SOB X 1 WEEK Time Seen by Provider: 09/24/18 19:43 Past History <Rosa Ramesh - Last Filed: 09/24/18 21:02> - Past Medical History Anemia: No Asthma: Yes (BRONCHIAL ASTHMA) Cancer: No Cardiac Disorders: No CVA: No COPD: No CHF: No DVT: No Dementia: No Diabetes: No GI Disorders: No Disorders: No HTN: No Hypercholesterolemia: No Liver Disease: No Seizures: No Thyroid Disease: No - Surgical History Abdominal Surgery: No Appendectomy: No Cardiac Surgery: No Cholecystectomy: Yes Lung Surgery: No Neurologic Surgery: No Orthopedic Surgery: No - Suicide/Smoking/Psychosocial Hx Smoking History: Current some day smoker Have you smoked in the past 12 months: Yes Number of Cigarettes Smoked Daily: 1 Information on smoking cessation initiated: Yes 'Breaking Loose' booklet given: 10/16/17 Hx Alcohol Use: No Drug/Substance Use Hx: No Substance Use Type: None Hx Substance Use Treatment: No <Cathryn Cuenca I - Last Filed: 09/25/18 00:33> - Past Medical History Allergies/Adverse Reactions: Allergies Allergy/AdvReac Type Severity Reaction Status Date / Time No Known Allergies Allergy Verified 09/24/18 19:25 Home Medications: Ambulatory Orders Ibuprofen 800 mg PO PRN 09/24/18 *Physical Exam - Vital Signs Last Vital Signs Temp Pulse Resp BP Pulse Ox 99 F 96 H 18 139/69 97 09/24/18 19:28 09/24/18 19:28 09/24/18 19:28 09/24/18 19:28 09/24/18 19:28 <Rosa Ramesh - Last Filed: 09/24/18 21:02> - Vital Signs Last Vital Signs Temp Pulse Resp BP Pulse Ox 99 F 96 H 18 139/69 97 09/24/18 19:28 09/24/18 19:28 09/24/18 19:28 09/24/18 19:28 09/24/18 19:28 <Cathryn Cuenca I - Last Filed: 09/25/18 00:33> ED Treatment Course - LABORATORY CBC & Chemistry Diagram: 09/24/18 20:19 09/24/18 20:19 - Medications Given in the ED: ED Medications Discontinued Medications Generic Name Dose Route Start Last Admin Trade Name Freq PRN Reason Stop Dose Admin Ketorolac Tromethamine 30 mg 09/24/18 19:51 09/24/18 20:16 Toradol Injection - IVPUSH 09/24/18 19:52 30 mg ONCE ONE Administration <Rosa Ramesh - Last Filed: 09/24/18 21:02> - LABORATORY CBC & Chemistry Diagram: 09/24/18 20:19 09/24/18 20:19 <Cathryn Cuenca I - Last Filed: 09/25/18 00:33> *DC/Admit/Observation/Transfer - Attestations Scribe Attestion: 09/24/18 20:26 Documentation prepared by Rosa Ramesh, acting as medical sales representative for Cathryn Cuenca MD. <Rosa Ramesh - Last Filed: 09/24/18 21:02> <Cathryn Cuenca I - Last Filed: 09/25/18 00:33> Diagnosis at time of Disposition: Myalgia Arthralgia Qualifiers: Joint pain location: unspecified Qualified Code(s): M25.50 - Pain in unspecified joint Dyspnea Qualifiers: Dyspnea type: unspecified Qualified Code(s): R06.00 - Dyspnea, unspecified - Discharge Dispostion Disposition: HOME Condition at time of disposition: Stable - Referrals Referrals: Nicky Fernandez MD [Primary Care Provider] - - Patient Instructions Additional Instructions: Your workup was negative for any acute pathological process. However there is evidence of an inflammatory condition, and in addition today her CAT scan did show a thyroid nodule as well as a nodule in your lung. It is very important needed take a copy of the CAT scan report with you to your primary care doctor and have both the thyroid and lung nodule followed up. Return to the emergency department immediately with ANY new, persistent or worsening symptoms. Continue any medications as previously prescribed by your physician. You should follow up with your primary doctor as soon as possible regarding today's emergency department visit. . Please make sure your doctor reviews the results of your emergency evaluation. Thank you for coming to the Emergency Department today for your care. It was a pleasure to see you today. Please note that your evaluation is INCOMPLETE until you follow-up with your doctor. - Post Discharge Activity
[2018-09-24] MEDS ORDERED: KETOROLAC TROMETHAMINE 30 MG/1 ML VIAL IVPUSH ONE (19:51)
[2018-09-24] MEDS ORDERED: KETOROLAC TROMETHAMINE 30 MG/1 ML VIAL ONE (20:05)
[2018-09-24 20:24] LABS: PH,URINE 6.5 (4.5-8); URINE APPEARANCE Clear; URINE BILIRUBIN Negative (NEGATIVE); URINE COLOR Yellow; URINE GLUCOSE (UA) Negative (NEGATIVE); URINE KETONE Negative (NEGATIVE); URINE LEUK ESTERASE Negative (NEGATIVE); URINE NITRITE Negative (NEGATIVE); URINE PROTEIN Negative (NEGATIVE); URINE UROBILINOGEN 0.2 (0.2-1.0)
[2018-09-24 20:39] LABS: BASO % 0.3 % (0-2.0); HEMOGLOBIN 10.6 GM/dl (10.7-15.3); LYMPH % 12.9 % (8-40); MCH 24.1 pg (25.7-33.7); MCHC 32.2 g/dl (32.0-36.0); MEAN CELL VOLUME 75.1 fl (80-96); MEAN PLT VOLUME 7.7 fl (7.5-11.1); MONO % 5.7 % (3.8-10.2); NEUT % 80.1 % (42.8-82.8); PLATELET COUNT 336 K/MM3 (134-434); RDW 15.1 % (11.6-15.6); WHITE BLOOD COUNT 12.4 K/mm3 (4.0-10.8)
[2018-09-24 20:41] LABS: MAGNESIUM 1.8 mg/dL (1.8-2.4); PHOSPHOROUS 3.1 mg/dl (2.5-4.6)
[2018-09-24 20:42] LABS: ALBUMIN 3.4 g/dl (3.5-5.0); ALK PHOS 59 U/L (32-92); ANION GAP 8 MMOL/L (8-16); BILIRUBIN,TOTAL 0.3 mg/dl (0.2-1.0); BLOOD UREA NITROGEN 22 mg/dl (7-18); CALCIUM 8.4 mg/dl (8.4-10.2); CHLORIDE 106 mmol/L (98-107); CO2 27 mmol/L (22-28); CREATININE 0.7 mg/dl (0.6-1.3); GLUCOSE,RANDOM 118 mg/dl (74-106); POTASSIUM 3.5 mmol/L (3.5-5.1); SGOT/AST 16 U/L (10-42); SGPT/ALT 14 U/L (10-40); SODIUM 141 mmol/L (136-145); TOT PROT 6.5 g/dl (6.4-8.3)
[2018-09-24 21:54] LABS: N-TERMINAL BNP 75.1 pg/ml (5-125)
[2018-09-24] MEDS ORDERED: MAG HYDROX/AL HYDROX/SIMETH -MYLANTA- ORAL SUSPENSION PO ONE (22:36)
[2018-09-24] MEDS ORDERED: MAG HYDROX/AL HYDROX/SIMETH 30 ML UNIT-DOSE CUP ONE (22:36)
[2018-09-24] MEDS ORDERED: diazePAM CARPU-JECT 10 MG/2 ML DISP.SYRIN IVPUSH ONE (23:14)
[2018-09-24] MEDS ORDERED: LORazepam 2 MG/ML SDV VIAL ONE (23:23)
--- NOTE | 2018-09-25 12:36 | EKG ---
Test Reason : Blood Pressure : / mmHG Vent. Rate : 086 BPM Atrial Rate : 086 BPM P-R Int : 174 ms QRS Dur : 090 ms QT Int : 370 ms P-R-T Axes : 059 069 039 degrees QTc Int : 442 ms NORMAL SINUS RHYTHM NORMAL ECG Confirmed by MD CHELSEY, LEONIDAS ([id number]) on 09/25/2018 12:36:19 PM Referred By: DR CARTAGENA Confirmed By:LEONIDAS BARBOSA MD
== END 2018-09-25 00:39 | disposition home or self-care (01) ==
LOC: FER 19:24
PROC: 3E0333Z Introduction of Anti-inflammatory into Peripheral Vein, Percutaneous Approach (ICD-10-PCS; principal; 2018-09-24)
PROC: 3E033NZ Introduction of Analgesics, Hypnotics, Sedatives into Peripheral Vein, Percutaneous Approach (ICD-10-PCS; 2018-09-24)
DX: M25.50 Pain in unspecified joint (principal); R06.00 Dyspnea, unspecified; M79.10 Myalgia, unspecified site; F17.210 Nicotine dependence, cigarettes, uncomplicated; J45.909 Unspecified asthma, uncomplicated
CPT/HCPCS: 36415; 71046-TC-FY; 71275-TC; 80053; 81003; 82550; 83735; 83880; 84100; 84484; 84703; 85025; 85379; 86140; 86618; 93005; 99282-25

== ENCOUNTER 2019-11-16 11:41 | Emergency (ER) | payer BC ==
--- NOTE | 2019-11-16 11:48 | PDOC ---
History of Present Illness - General Chief Complaint: Nausea/Vomiting Stated Complaint: nausea,vomiting Time Seen by Provider: 11/16/19 11:47 Past History - Past Medical History Allergies/Adverse Reactions: Allergies Allergy/AdvReac Type Severity Reaction Status Date / Time No Known Allergies Allergy Verified 11/16/19 11:42 Home Medications: Ambulatory Orders Ciprofloxacin HCl [Cipro] 500 mg PO PRN PRN 11/16/19 Anemia: No Asthma: Yes (BRONCHIAL ASTHMA) Cancer: No Cardiac Disorders: No CVA: No COPD: No CHF: No DVT: No Dementia: No Diabetes: No GI Disorders: No Disorders: No HTN: No Hypercholesterolemia: No Liver Disease: No Seizures: No Thyroid Disease: No - Surgical History Abdominal Surgery: No Appendectomy: No Cardiac Surgery: No Cholecystectomy: Yes Lung Surgery: No Neurologic Surgery: No Orthopedic Surgery: No - Psycho Social/Smoking Cessation Hx Smoking History: Current some day smoker Have you smoked in the past 12 months: Yes Number of Cigarettes Smoked Daily: 1 'Breaking Loose' booklet given: 10/16/17 Hx Alcohol Use: No Drug/Substance Use Hx: No Substance Use Type: None Hx Substance Use Treatment: No
[2019-11-16 11:55] VITALS: BMI 40.3
[2019-11-16] MEDS ORDERED: ONDANSETRON 4 MG/2 ML VIAL IVPB ONE (12:02)
[2019-11-16] MEDS ORDERED: SODIUM CHLORIDE 1,000 ML IV STA ×2 (12:03→13:16)
[2019-11-16] MEDS ORDERED: ACETAMINOPHEN 1000 MG/100 ML VIAL (NON FORMULARY) IVPB ONE (12:03)
--- NOTE | 2019-11-16 12:12 | PDOC ---
History of Present Illness - General Chief Complaint: Nausea/Vomiting Stated Complaint: nausea,vomiting Time Seen by Provider: 11/16/19 11:47 - History of Present Illness Initial Comments: 11/16/19 12:09 Chief complaint: Cough, fever, body aches, nausea, retching since yesterday. HPI: [place] feverish but did not take her temperature. Nonproductive cough and wheezing. One episode of retching with small amount of bile emesis this morning , as a result of coughing. Did not receive influenza immunization. Review of systems: No abdominal pain or diarrhea. Urinating, without urinary tract symptoms. No vaginal bleeding or discharge Past medical history: No history of asthma, but experiences bronchospasm and wheezing when she gets a cold. On control pills. Denies cardiovascular, pulmonary diseases. Social history: Works for the [employer]. Exposed to sick children and other workers. No tobacco alcohol or nonprescription drugs Family history: Reviewed and noncontributory including early coronary artery disease, pulmonary diseases, metabolic diseases including diabetes, and cancer Physical exam: Alert and oriented mildly obese no acute distress cooperative. No tachypnea or dyspnea, but frequent coughing spells, nonproductive Temperature 100.3, heart rate 108 regular, remainder of vitals normal including oxygen saturation 97%. HEENT: Normal Neck supple without bruit mass or nodes Mildly decreased breath sounds bilaterally, but symmetric. No dullness to percussion. No egophony. Occasional end expiratory wheezes but no rales or rhonchi CV S1-S2 normal without murmur rub or gallop pulses full and symmetric no JVD or edema no bruits 100 and regular Abdomen nondistended. Bowel sounds normal. Soft without mass tenderness organomegaly. No CVAT Skin clear, no rash, adequate turgor and wet mucous membranes Neurological intact Extremities no CCE Impression: Viral upper respiratory infection, possible viral bronchitis, likely etiology is influenza. No sign of pneumonia. No sign of respiratory distress. Plan: Symptomatic treatment, baseline labs, and further evaluation depending on results. Past History - Past Medical History Allergies/Adverse Reactions: Allergies Allergy/AdvReac Type Severity Reaction Status Date / Time No Known Allergies Allergy Verified 11/16/19 11:42 Home Medications: Ambulatory Orders Guaifenesin AC [Robitussin-AC] 1 - 2 tsp PO Q4HWA PRN #120 ml MDD 8 11/16/19 Ibuprofen 600 mg PO TID PRN #20 tablet 11/16/19 Ondansetron [Zofran *Odt*] 4 mg SL TID PRN #10 od.tablet 11/16/19 Anemia: No Asthma: Yes (BRONCHIAL ASTHMA) Cancer: No Cardiac Disorders: No CVA: No COPD: No CHF: No DVT: No Dementia: No Diabetes: No GI Disorders: No Disorders: No HTN: No Hypercholesterolemia: No Liver Disease: No Seizures: No Thyroid Disease: No - Surgical History Abdominal Surgery: No Appendectomy: No Cardiac Surgery: No Cholecystectomy: Yes Lung Surgery: No Neurologic Surgery: No Orthopedic Surgery: No - Psycho Social/Smoking Cessation Hx Smoking History: Never smoked Have you smoked in the past 12 months: No Number of Cigarettes Smoked Daily: 1 Information on smoking cessation initiated: No 'Breaking Loose' booklet given: 10/16/17 Hx Alcohol Use: No Drug/Substance Use Hx: No Substance Use Type: None Hx Substance Use Treatment: No *Physical Exam - Vital Signs Last Vital Signs Temp Pulse Resp BP Pulse Ox 100.3 F H 108 H 20 139/57 L 97 11/16/19 11:42 11/16/19 11:42 11/16/19 11:42 11/16/19 11:42 11/16/19 11:42 ED Treatment Course - LABORATORY CBC & Chemistry Diagram: 11/16/19 12:22 11/16/19 12:22 Medical Decision Making - Medical Decision Making 11/16/19 13:52 CBC and chemistries without significant abnormalities Patient is feeling much better. Coughing is controlled. No further retching, vomiting, or other GI symptoms. Discharged with , fully ambulatory, treated symptomatically with medication as directed. Return to the ER if symptoms worsen otherwise follow- up family physician Discharge - Discharge Information Problems reviewed: Yes Clinical Impression/Diagnosis: Viral syndrome Condition: Improved Disposition: HOME - Admission No - Additional Discharge Information Prescriptions: Guaifenesin AC [Robitussin-AC] 1 - 2 tsp PO Q4HWA PRN #120 ml MDD 8 PRN Reason: Cough Ibuprofen 600 mg PO TID PRN #20 tablet PRN Reason: Fever, body aches Ondansetron [Zofran *Odt*] 4 mg SL TID PRN #10 od.tablet PRN Reason: Nausea And/Or Vomiting - Follow up/Referral - Patient Discharge Instructions Patient Printed Discharge Instructions: DI for Viral Upper Respiratory Infection -- Adult Additional Instructions: Rest, fluids, medication as needed. Return to ER if symptoms worsen. Otherwise follow-up primary physician 2 to 3 days. - Post Discharge Activity Work/Back to School Note: Back to Work
[2019-11-16] MEDS ORDERED: ONDANSETRON 4 MG/2 ML VIAL ONE (12:14)
[2019-11-16] MEDS ORDERED: ACETAMINOPHEN INJECTION 100 ML IVPB ONE (12:14)
[2019-11-16] MEDS ORDERED: guaiFENesin/CODEINE 10 ML UNIT-DOSE CUPS PO ONE (12:14)
[2019-11-16 12:40] LABS: BASO % 0.3 % (0-2.0); EOS % 0.8 % (0-4.5); HEMATOCRIT 35.5 % (32.4-45.2); HEMOGLOBIN 11.1 GM/dl (10.7-15.3); LYMPH % 3.8 % (8-40); MCH 23.3 pg (25.7-33.7); MCHC 31.3 g/dl (32.0-36.0); MEAN CELL VOLUME 74.4 fl (80-96); MEAN PLT VOLUME 7.4 fl (7.5-11.1); MONO % 7.3 % (3.8-10.2); NEUT % 87.8 % (42.8-82.8); PLATELET COUNT 319 K/MM3 (134-434); RBC 4.77 M/mm3 (3.60-5.2); WHITE BLOOD COUNT 7.1 K/mm3 (4.0-10.8)
[2019-11-16 12:48] LABS: ALBUMIN 3.4 g/dl (3.4-5.0); BILIRUBIN,TOTAL 0.6 mg/dl (0.2-1); CALCIUM 8.5 mg/dl (8.5-10); CREATININE 0.7 mg/dl (0.55-1.3); POTASSIUM 3.7 mmol/L (3.5-5.1); TOT PROT 6.9 g/dl (6.4-8.2)
[2019-11-16] MEDS ORDERED: guaiFENesin/CODEINE 10 ML UNIT-DOSE CUPS ONE (13:03)
[2019-11-16 14:19] VITALS: BP 104/48; PULSE 87; TEMP 99.1
== END 2019-11-16 14:30 | disposition home or self-care (01) ==
LOC: FER 11:41
PROC: 3E033NZ Introduction of Analgesics, Hypnotics, Sedatives into Peripheral Vein, Percutaneous Approach (ICD-10-PCS; principal; 2019-11-16)
PROC: 3E033GC Introduction of Other Therapeutic Substance into Peripheral Vein, Percutaneous Approach (ICD-10-PCS; 2019-11-16)
PROC: 3E0337Z Introduction of Electrolytic and Water Balance Substance into Peripheral Vein, Percutaneous Approach (ICD-10-PCS; 2019-11-16)
DX: B34.9 Viral infection, unspecified (principal); J45.909 Unspecified asthma, uncomplicated
CPT/HCPCS: 36415; 80053; 85025; 99283-25; J0131; J7030

== ENCOUNTER 2020-11-13 10:18 | Emergency (ER) | payer BC ==
[2020-11-13 10:36] VITALS: BP 148/71; PULSE 102; TEMP 98.5; BMI 40.3
[2020-11-13 11:22] LABS: BASO % 0.9 % (0-2.0); EOS % 1.1 % (0-4.5); HEMATOCRIT 34.9 % (32.4-45.2); HEMOGLOBIN 10.9 GM/dL (10.7-15.3); LYMPH % 23.3 % (8-40); MCHC 31.2 g/dl (32.0-36.0); MEAN CELL VOLUME 73.6 fl (80-96); MEAN PLT VOLUME 7.8 fl (7.5-11.1); MONO % 6.8 % (3.8-10.2); NEUT % 67.9 % (42.8-82.8); PLATELET COUNT 389 K/MM3 (134-434); RBC 4.74 M/mm3 (3.60-5.2); RDW 17.8 % (11.6-15.6); WHITE BLOOD COUNT 9.1 K/mm3 (4.0-10.0)
== END 2020-11-13 13:57 | disposition home or self-care (01) ==
LOC: JER 10:18
DX: N95.9 Unspecified menopausal and perimenopausal disorder (principal)
CPT/HCPCS: 36415; 85025; 99284-25

== ENCOUNTER 2021-09-27 15:57 | Emergency (ER) | payer BC ==
[2021-09-27] MEDS ORDERED: KETOROLAC TROMETHAMINE 15 MG/ML VIAL IVPUSH ONE ×2 (16:20→17:08)
[2021-09-27] MEDS ORDERED: SODIUM CHLORIDE 0.9% 500 ML INFUS.BAG IV ONE (16:20)
[2021-09-27] MEDS ORDERED: ONDANSETRON 4 MG/2 ML VIAL IVPUSH ONE (16:20)
[2021-09-27 16:21] VITALS: BP 135/56; PULSE 80; TEMP 98.5; BMI 41.9
[2021-09-27] MEDS ORDERED: ONDANSETRON 4 MG/2 ML VIAL ONE (16:25)
[2021-09-27] MEDS ORDERED: KETOROLAC TROMETHAMINE 15 MG/ML VIAL ONE ×2 (16:25→17:18)
[2021-09-27 17:09] LABS: BASO % 1.6 % (0-2.0); EOS % 0.8 % (0-4.5); HEMATOCRIT 34.2 % (32.4-45.2); HEMOGLOBIN 10.8 GM/dl (10.7-15.3); LYMPH % 14.5 % (8-40); MCH 22.4 pg (25.7-33.7); MCHC 31.6 g/dl (32.0-36.0); MEAN CELL VOLUME 70.9 fl (80-96); MEAN PLT VOLUME 7.1 fl (7.5-11.1); MONO % 6.5 % (3.8-10.2); NEUT % 76.6 % (42.8-82.8); PLATELET COUNT 514 10^3/uL (134-434); RBC 4.82 M/mm3 (3.60-5.2); RDW 16.4 % (11.6-15.6); WHITE BLOOD COUNT 11.3 K/mm3 (4.0-10.8)
[2021-09-27] MEDS ORDERED: ACETAMINOPHEN 1000 MG/100 ML VIAL IVPB ONE (17:09)
[2021-09-27 17:11] LABS: ADD RBC MORPHOLOGY YES
[2021-09-27] MEDS ORDERED: ACETAMINOPHEN INJECTION 100 ML IVPB ONE (17:18)
[2021-09-27 17:26] LABS: ALBUMIN 3.7 g/dl (3.4-5.0); BILIRUBIN,TOTAL 0.6 mg/dl (0.2-1); CALCIUM 8.9 mg/dl (8.5-10); CREATININE 0.5 mg/dl (0.55-1.3); TOT PROT 7.1 g/dl (6.4-8.2)
[2021-09-27] MEDS ORDERED: morphine SULFATE 4 MG/ML VIAL ONE (19:11)
[2021-09-27 20:17] LABS: ANISOCYTOSIS 1+; PLATELET ESTIMATE ADEQUATE
== END 2021-09-27 21:57 | disposition home or self-care (01) ==
LOC: FER 15:57
PROC: 3E0333Z Introduction of Anti-inflammatory into Peripheral Vein, Percutaneous Approach (ICD-10-PCS; principal; 2021-09-27)
PROC: 3E0333Z Introduction of Anti-inflammatory into Peripheral Vein, Percutaneous Approach (ICD-10-PCS; 2021-09-27)
PROC: 3E0333Z Introduction of Anti-inflammatory into Peripheral Vein, Percutaneous Approach (ICD-10-PCS; 2021-09-27)
PROC: 3E033NZ Introduction of Analgesics, Hypnotics, Sedatives into Peripheral Vein, Percutaneous Approach (ICD-10-PCS; 2021-09-27)
PROC: 3E033GC Introduction of Other Therapeutic Substance into Peripheral Vein, Percutaneous Approach (ICD-10-PCS; 2021-09-27)
DX: R07.9 Chest pain, unspecified (principal)
CPT/HCPCS: 36415; 74176-TC; 80053; 81003; 82550; 84484; 85025; 93005; 99285-25; J0131

== ENCOUNTER 2021-12-01 04:36 | Day surgery (SDC) | payer BC ==
[2021-11-30 11:58] VITALS: BMI 42.3
[2021-12-01] MEDS ORDERED: IBUPROFEN 400 MG TABLET (FP) PO PRN (12:37)
[2021-12-01] MEDS ORDERED: ACETAMINOPHEN 325 MG TABLET (FP) PO PRN (12:37)
[2021-12-01] MEDS ORDERED: fentaNYL CITRATE 250 MCG/5 ML VIAL ONE (13:15)
[2021-12-01] MEDS ORDERED: MIDAZOLAM HCL 2 MG/2 ML SINGLE DOSE VIAL ONE (13:15)
[2021-12-01] MEDS ORDERED: PROPOFOL 20 ML ONE (13:15)
[2021-12-01] MEDS ORDERED: ONDANSETRON 4 MG/2 ML VIAL IVPUSH PRN (13:23)
[2021-12-01] MEDS ORDERED: oxyCODONE HCL 5 MG TABLET PO PRN (13:23)
[2021-12-01] MEDS ORDERED: LACTATED RINGERS SOLUTION 1,000 ML IV SCH (13:30)
[2021-12-01] MEDS ORDERED: LIDOCAINE HCL/PF 2% SDV 5ML VIAL ONE (13:40)
[2021-12-01] MEDS ORDERED: KETOROLAC TROMETHAMINE 30 MG/1 ML VIAL ONE (13:40)
[2021-12-01] MEDS ORDERED: DEXAMETHASONE SOD PHOSPHATE 4 MG/1 ML VIAL ONE (13:40)
[2021-12-01 14:55] VITALS: TEMP 97.3
[2021-12-01 16:06] VITALS: BP 130/65; PULSE 82
== END 2021-12-01 16:55 | disposition home or self-care (01) ==
LOC: JASU-SURG 04:36
PROVIDERS: ATTEND Obstetrics & Gynecology
PROC: 0UB98ZX Excision of Uterus, Via Natural or Artificial Opening Endoscopic, Diagnostic (ICD-10-PCS; principal; 2021-12-01 13:00)
PROC: 0UDB7ZX Extraction of Endometrium, Via Natural or Artificial Opening, Diagnostic (ICD-10-PCS; 2021-12-01 13:00)
DX: N92.0 Excessive and frequent menstruation with regular cycle (principal); N84.0 Polyp of corpus uteri
CPT/HCPCS: 81025; 88305-TC; 94760

== ENCOUNTER 2023-01-24 22:45 | Emergency (ER) | payer BC ==
[2023-01-24 22:52] VITALS: RESP 16; TEMP 98; BMI 40.3
[2023-01-24] MEDS ORDERED: ACETAMINOPHEN 1000 MG/100 ML BAG IVPB ONE (23:20)
[2023-01-24] MEDS ORDERED: FAMOTIDINE 20 MG/50 ML IVPB 20 MG/50 ML MG IVPB ONE ×2 (23:20→23:36)
[2023-01-24] MEDS ORDERED: ACETAMINOPHEN INJECTION 100 ML IVPB ONE (23:36)
[2023-01-25 00:11] VITALS: BP 118/57; PULSE 66
[2023-01-25] MEDS ORDERED: KETOROLAC TROMETHAMINE 30 MG/1 ML VIAL IVPUSH ONE (00:33)
[2023-01-25 00:37] LABS: BASO % 0.6 % (0-2.0); EOS % 0.7 % (0-4.5); HEMATOCRIT 32.5 % (32.4-45.2); HEMOGLOBIN 10.3 GM/dL (10.7-15.3); LYMPH % 21.1 % (8-40); MCH 21.1 pg (25.7-33.7); MCHC 31.7 g/dl (32.0-36.0); MEAN CELL VOLUME 66.6 fl (80-96); MEAN PLT VOLUME 7.3 fl (7.5-11.1); MONO % 5.1 % (3.8-10.2); NEUT % 72.5 % (42.8-82.8); PLATELET COUNT 371 10^3/uL (134-434); RBC 4.88 M/mm3 (3.60-5.2); RDW 18.3 % (11.6-15.6); WHITE BLOOD COUNT 9.4 K/mm3 (4.0-10.0)
[2023-01-25] MEDS ORDERED: KETOROLAC TROMETHAMINE 30 MG/1 ML VIAL ONE (00:37)
[2023-01-25 01:01] LABS: ALBUMIN 3.4 g/dl (3.4-5.0); BLOOD UREA NITROGEN 8.3 mg/dL (7-18); CALCIUM 8.8 mg/dL (8.5-10.1)
[2023-01-25 01:05] LABS: CREATININE 0.7 mg/dL (0.55-1.3)
[2023-01-25 01:06] LABS: BILIRUBIN,TOTAL 0.7 mg/dL (0.2-1); TOT PROT 6.9 g/dl (6.4-8.2)
[2023-01-25] MEDS ORDERED: PANTOPRAZOLE SODIUM 40 MG VIAL IVPB ONE (01:33)
[2023-01-25] MEDS ORDERED: MAG HYDROX/AL HYDROX/SIMETH -MYLANTA- ORAL SUSPENSION PO ONE (01:33)
[2023-01-25] MEDS ORDERED: MAG HYDROX/AL HYDROX/SIMETH 30 ML UNIT-DOSE CUP ONE (01:34)
[2023-01-25] MEDS ORDERED: PANTOPRAZOLE 40 MG TABLET PO ONE (01:34)
[2023-01-25] MEDS ORDERED: PANTOPRAZOLE SODIUM 40 MG VIAL ONE (01:36)
[2023-01-25 03:27] LABS: ANISOCYTOSIS 1+; MACROCYTOSIS 0
== END 2023-01-25 02:02 | disposition home or self-care (01) ==
LOC: FER 22:45
PROC: 3E033GC Introduction of Other Therapeutic Substance into Peripheral Vein, Percutaneous Approach (ICD-10-PCS; principal; 2023-01-24)
DX: R07.89 Other chest pain (principal); K21.9 Gastro-esophageal reflux disease without esophagitis
CPT/HCPCS: 0241U-QW; 36415; 71045-TC-FY; 80053; 82550; 84484; 85025; 93005; 99285-25

== ENCOUNTER 2024-01-11 11:08 | Emergency (ER) | payer BC ==
[2024-01-11 11:22] VITALS: BP 148/64; PULSE 75; RESP 16; TEMP 98.6; BMI 43.5
[2024-01-11] MEDS ORDERED: KETOROLAC TROMETHAMINE 15 MG/ML VIAL ONE (11:35)
[2024-01-11] MEDS ORDERED: LIDOCAINE 5% TOPICAL PATCH ONE (11:35)
[2024-01-11] MEDS: KETOROLAC TROMETHAMINE 15 MG/ML VIAL IM ONE (11:40)
[2024-01-11] MEDS: LIDOCAINE 5% TOPICAL PATCH TP ONE (12:15)
[2024-01-11] MEDS ORDERED: LIDOCAINE PATCH REMOVAL MC ONE (22:00)
== END 2024-01-11 12:57 | disposition home or self-care (01) ==
LOC: FER 11:08
PROC: 3E0233Z Introduction of Anti-inflammatory into Muscle, Percutaneous Approach (ICD-10-PCS; principal; 2024-01-11)
DX: M25.561 Pain in right knee (principal)
CPT/HCPCS: 73562-TC-RT-FY; 99284-25